=== PATIENT | male | born 1965 | race Native Hawaiian/Other Pacific Islander ===

== ENCOUNTER 2019-05-25 15:50 | Observation (INO) | payer OTHER ==
[~2019-05-25] VITALS: Ht 180.3 cm; Wt 93.2 kg
[~2019-05-25 15:50] MED LIST: ASPI-93 PO; BYSTOLIC5 MG PO; NEXIUM40 MG PO
[2019-05-25] MEDS ORDERED: METOPROLOL25 M1 PO (16:55)
[2019-05-25 16:57] LABS: PLATELET COUNT 209 K/uL (142-355)
[2019-05-25] MEDS ORDERED: ASA LOW DOSE81 MG PO (16:57)
[2019-05-25 17:04] VITALS: BP 154/67; TEMP 97.5; Ht 180.3 cm; Wt 93.2 kg
[2019-05-25 17:11] LABS: POTASSIUM 3.8 mmol/L (3.6-5.2); SODIUM 142 mmol/L (136-145)
[2019-05-25 17:19] LABS: PARTIAL THROMBOPLASTIN TIME 24.5 SECONDS (24.5-33.6)
[2019-05-25 20:05] VITALS: BP 117/63; TEMP 97.7
[2019-05-26] VITALS: BP 116/62; TEMP 98.6
[2019-05-26 04:00] VITALS: BP 107/59; TEMP 97.4
[2019-05-26 08:00] VITALS: BP 131/60; TEMP 98.3
[2019-05-26 12:00] VITALS: BP 119/72; TEMP 98.2
[2019-05-26 16:00] VITALS: BP 131/74; TEMP 98.3
== END 2019-05-26 16:52 | disposition home or self-care (01) ==
LOC: MED/SURG 15:50
PROVIDERS: ADMIT Family Medicine
DX: R07.89 Other chest pain (principal); M54.6 Pain in thoracic spine
CPT/HCPCS: 36415; 80053; 82550; 84484; 85027; 85610; 85730; 93005; 96372; 96374; 96375; 99220; G0378; G0379; J1650; J1885; J2270; J2930

== ENCOUNTER 2019-05-30 13:29 | Outpatient (CLI) | payer BC ==
[~2019-05-30 13:29] MED LIST changes: +ASA LOW DOSE81 MG PO; +METOPROLOL25 M1 PO
== END 2019-05-30 19:36 | disposition home or self-care (01) ==
LOC: RAD 13:29
DX: M54.12 Radiculopathy, cervical region (principal)

== ENCOUNTER 2022-11-28 12:14 | Outpatient (CLI) | payer BC | END 2022-11-28 19:42 | disposition home or self-care (01) | LOC: RAD 12:14 | PROVIDERS: ATTEND Nurse Practitioner | DX: R91.1 Solitary pulmonary nodule (principal) ==